=== PATIENT | male | born 1975 | race African-American/Black ===

== ENCOUNTER 2021-03-08 07:09 | Emergency (ER) | payer SELFPAY ==
[~2021-03-08] VITALS: Ht 180.3 cm; Wt 99.8 kg
[2021-03-08] MEDS ORDERED: IOHEXOL 350 MG/ML 100ML IJ ONE (08:14)
[2021-03-08 10:27] VITALS: BP 115/63
== END 2021-03-08 11:59 | disposition home or self-care (01) ==
LOC: ER 07:09 → EDBD 07:09 → ER 11:59
DX: S00.83XA Contusion of other part of head, initial encounter (principal); T14.8XXA Other injury of unspecified body region, initial encounter; J18.9 Pneumonia, unspecified organism; V02.99XA Pedestrian with other conveyance injured in collision with two- or three-wheeled motor vehicle, unspecified whether traffic or nontraffic accident, initial encounter; Y93.89 Activity, other specified; Y92.89 Other specified places as the place of occurrence of the external cause; Y99.8 Other external cause status
CPT/HCPCS: 70450; 71260; 72125; 74177; 99285; Q9967

== ENCOUNTER 2022-11-26 16:44 | Emergency (ER) | payer MEDICAID, OTHER ==
[~2022-11-26] VITALS: Ht 185.4 cm; Wt 97.3 kg
[2022-11-26] MEDS ORDERED: IBUP-1456 PO (19:05)
[2022-11-26 19:24] VITALS: BP 135/98; PULSE 90; RESP 16; TEMP 98.1; O2SAT 98
== END 2022-11-26 20:33 | disposition home or self-care (01) ==
LOC: ER 16:44
DX: S46.911A Strain of unspecified muscle, fascia and tendon at shoulder and upper arm level, right arm, initial encounter (principal); Y04.2XXA Assault by strike against or bumped into by another person, initial encounter; Y93.01 Activity, walking, marching and hiking; Y92.89 Other specified places as the place of occurrence of the external cause; Y99.8 Other external cause status
CPT/HCPCS: 73030

== ENCOUNTER 2023-07-03 06:53 | Emergency (ER) | payer MEDICAID ==
[~2023-07-03] VITALS: Ht 185.4 cm; Wt 102.0 kg
[~2023-07-03 06:53] MED LIST: IBUP-1456 PO
[2023-07-03] MEDS ORDERED: AUG875T PO (07:30)
[2023-07-03 07:33] VITALS: BP 130/90; PULSE 87; RESP 20; TEMP 97.9; O2SAT 97
== END 2023-07-03 07:43 | disposition home or self-care (01) ==
LOC: ER 06:53
DX: H66.93 Otitis media, unspecified, bilateral (principal); Z79.899 Other long term (current) drug therapy